=== PATIENT | male | born 1935 | race Caucasian/White ===

== ENCOUNTER → 2018-03-12 | Outpatient (CLI) | payer OTHER | LOC: MRI 06:29 | DX: M41.85 Other forms of scoliosis, thoracolumbar region (principal); M47.894 Other spondylosis, thoracic region; M48.04 Spinal stenosis, thoracic region; M50.323 Other cervical disc degeneration at C6-C7 level; M51.26 Other intervertebral disc displacement, lumbar region; M77.8 Other enthesopathies, not elsewhere classified; G14 Postpolio syndrome; R29.898 Other symptoms and signs involving the musculoskeletal system ==